=== PATIENT | female | born 1945 | race African-American/Black ===

== ENCOUNTER → 2017-06-18 | Outpatient (CLI) | payer MEDICARE, MEDICAID | END | disposition home or self-care (01) | LOC: RAD 09:45 | PROVIDERS: ATTEND Specialist | DX: M19.011 Primary osteoarthritis, right shoulder (principal) | CPT/HCPCS: 73030 ==

== ENCOUNTER → 2018-08-04 | Day surgery (SDC) | payer MEDICARE, MEDICAID ==
[~2018-08-04] MED LIST: LIDOCAINE HCL 1% 20ML VIAL (Pyxis) INJ ONE; SODIUM BICARBONATE 4% (2.4MEQ) 5ML VIAL IV ONE
== END | disposition home or self-care (01) ==
LOC: RAD 08:39
PROVIDERS: ATTEND Internal Medicine Endocrinology, Diabetes & Metabolism
DX: E04.1 Nontoxic single thyroid nodule (principal); M19.011 Primary osteoarthritis, right shoulder
CPT/HCPCS: 10022; 76942; 88172; 88173; J3490